=== PATIENT | male | born 1965 | race Two or more races ===

== ENCOUNTER 2022-09-22 08:24 | Inpatient (IN) | payer MEDICAID ==
[~2022-09-22] VITALS: Ht 167.6 cm; Wt 69.9 kg
[2022-09-22] MEDS ORDERED: ONDANSETRON HCL 4MG/2ML INJ IV STA (09:06)
[2022-09-22] MEDS ORDERED: SODIUM CHLORIDE 0.9% 1,000 ML IV ONE (09:15)
[2022-09-22] MEDS ORDERED: PANTOPRAZOLE SODIUM 40 MG/VIAL IV ONE (09:15)
[2022-09-22 09:33] LABS: HEMATOCRIT. 26.1 % (42.0-52.0); HEMOGLOBIN. 8.6 g/dL (14.0-18.0); MEAN CORPUSCULAR HEMOGLOBIN 29.8 pg (28.0-32.0); MEAN CORPUSCULAR VOLUME 90.8 fL (80.0-94.0); MEAN PLATELET VOLUME 8.2 fl (7.4-10.4); PLATELET 91 x1000/uL (130-400); RED BLOOD CELL COUNT 2.87 mill/uL (4.7-6.1); RED CELL DISTRIBUTION WIDTH 16.5 % (11.6-14.6)
[2022-09-22 09:41] LABS: INR 1.3; PROTHROMBIN TIME 13.5 sec (9.6-11.0)
[2022-09-22 09:42] LABS: CHLORIDE 100 mEq/L (98-107)
[2022-09-22 09:49] LABS: ETHANOL BLOOD 13 mg/dL
[2022-09-22 10:13] LABS: PLATELET ESTIMATE DECREASED
[2022-09-22] MEDS ORDERED: ONDANSETRON HCL 4MG/2ML INJ IV NR (11:00)
[2022-09-22] MEDS ORDERED: LORAZEPAM 2MG/ML CPJ IV PRN (14:15)
[2022-09-22] MEDS: SODIUM CHLORIDE 0.9% 1,000 ML IV SCH ×2 (14:15→22:53)
[2022-09-22] MEDS ORDERED: ONDANSETRON HCL 4MG/2ML INJ IV PRN (14:15)
[2022-09-22] MEDS ORDERED: MVI, ADULT NO.1 10 ML, FOLIC ACID 1 MG, THIAMINE HCL 100 MG in SODIUM CHLORIDE 0.9% 1,0... IV ONE ×4 (14:15)
[2022-09-22] MEDS ORDERED: PANTOPRAZOLE 80 MG in SODIUM CHLORIDE 0.9% 100 ML IV SCH (14:15)
[2022-09-22] MEDS: PANTOPRAZOLE 80 MG in SODIUM CHLORIDE 0.9% 100 ML IV SCH (16:10)
[2022-09-22 17:02] LABS: HEPATITIS B SURFACE ANTIGEN NEGATIVE
[2022-09-23] VITALS (11 sets, daily range): BP systolic 104–114; BP diastolic 47–84
[2022-09-23 00:35] LABS: HEMATOCRIT 20.4 % (42.0-52.0); HEMOGLOBIN 6.6 g/dL (14.0-18.0)
[2022-09-23] MEDS ORDERED: DEXTROSE 50% WATER 50ML SYRINGE IV PRN (02:30)
[2022-09-23] MEDS: PANTOPRAZOLE 80 MG in SODIUM CHLORIDE 0.9% 100 ML IV SCH ×3 (02:56→20:38)
[2022-09-23] MEDS: BLOOD SUGAR DIAGNOSTIC STRIP TEST SCH ×4 (05:44→20:38)
[2022-09-23] MEDS: SODIUM CHLORIDE 0.9% 1,000 ML IV SCH ×3 (05:44→20:38)
[2022-09-23] MEDS: INSULIN LISPRO 100 UNITS/ML SUBCUT SCH ×4 (05:44→20:38)
[2022-09-23 06:06] LABS: CLARITY URINE CLEAR (CLEAR); COLOR URINE YELLOW (YELLOW); KETONES URINE NEGATIVE (NEGATIVE); LEUKOCYTE ESTERASE URINE NEGATIVE (NEGATIVE); NITRITE URINE NEGATIVE (NEGATIVE); OCCULT BLOOD URINE NEGATIVE (NEGATIVE); PH URINE 7.5 (4.5-8.0); PROTEIN URINE NEGATIVE (NEGATIVE); SPECIFIC GRAVITY URINE 1.014 (1.005-1.030); UROBILINOGEN URINE >8.0 E.U./dL (0.2-1.0)
[2022-09-23 06:36] LABS: *AMPHETAMINES SCREEN URINE NEGATIVE (NEGATIVE); *BARBITURATES SCREEN URINE NEGATIVE (NEGATIVE); *BENZODIAZEPINES SCREEN URINE NEGATIVE (NEGATIVE); *COCAINE SCREEN URINE NEGATIVE (NEGATIVE); CANNABINOID URINE SCREEN NEGATIVE (NEGATIVE); METHADONE URINE SCREEN NEGATIVE (NEGATIVE); OPIATES URINE SCREEN NEGATIVE (NEGATIVE); PHENCYCLIDINE URINE SCREEN NEGATIVE (NEGATIVE)
[2022-09-23 06:54] LABS: BASOPHILS % 1.2 % (0.0-2.0); EOSINOPHILS % 1.3 % (0.0-5.0); LYMPHOCYTES % 23.3 % (20.0-50.0); MEAN CORPUSCULAR VOLUME 91.8 fL (80.0-94.0); MEAN PLATELET VOLUME 9.2 fl (7.4-10.4); MONOCYTES % 14.2 % (2.0-8.0); PLATELET 79 x1000/uL (130-400); RED BLOOD CELL COUNT 2.28 mill/uL (4.7-6.1); RED CELL DISTRIBUTION WIDTH 16.5 % (11.6-14.6)
[2022-09-23 06:58] LABS: HEMATOCRIT. 20.9 % (42.0-52.0); HEMOGLOBIN. 6.8 g/dL (14.0-18.0)
[2022-09-23 07:06] LABS: CHLORIDE 108 mEq/L (98-107)
[2022-09-23] MEDS ORDERED: POTASSIUM CHLORIDE 20MEQ TABLET SR PO NR (14:00)
[2022-09-23] MEDS ORDERED: CEFAZOLIN 1000MG PREMIX 50 ML IV NR (14:00)
[2022-09-23 16:40] LABS: HEMATOCRIT 29.9 % (42.0-52.0); HEMOGLOBIN 9.8 g/dL (14.0-18.0)
[2022-09-23] MEDS ORDERED: CALCIUM CHLORIDE 1,000 MG in DEXT 5% WATER 90 ML IV NR (23:00)
[2022-09-23 23:53] LABS: HEMATOCRIT 30.6 % (42.0-52.0); HEMOGLOBIN 10.2 g/dL (14.0-18.0)
[2022-09-24] VITALS: BP 106/59
[2022-09-24 04:00] VITALS: BP 112/71
[2022-09-24] MEDS: SODIUM CHLORIDE 0.9% 1,000 ML IV SCH ×3 (05:20→20:36)
[2022-09-24] MEDS: INSULIN LISPRO 100 UNITS/ML SUBCUT SCH ×4 (05:20→20:36)
[2022-09-24] MEDS: BLOOD SUGAR DIAGNOSTIC STRIP TEST SCH ×4 (05:20→20:36)
[2022-09-24 06:46] LABS: BASOPHILS % 1.1 % (0.0-2.0); EOSINOPHILS % 2.4 % (0.0-5.0); HEMATOCRIT. 30.2 % (42.0-52.0); HEMOGLOBIN. 10.1 g/dL (14.0-18.0); LYMPHOCYTES % 22.9 % (20.0-50.0); MEAN CORPUSCULAR HEMOGLOBIN 29.5 pg (28.0-32.0); MEAN CORPUSCULAR VOLUME 88.1 fL (80.0-94.0); MEAN PLATELET VOLUME 9.7 fl (7.4-10.4); MONOCYTES % 12.2 % (2.0-8.0); NEUTROPHILS % 61.4 % (40.0-76.0); PLATELET 91 x1000/uL (130-400); RED BLOOD CELL COUNT 3.42 mill/uL (4.7-6.1); RED CELL DISTRIBUTION WIDTH 16.8 % (11.6-14.6)
[2022-09-24 06:51] LABS: INR 1.2; PROTHROMBIN TIME 13.1 sec (9.6-11.0)
[2022-09-24 08:00] VITALS: BP 113/73
[2022-09-24] MEDS: PANTOPRAZOLE 80 MG in SODIUM CHLORIDE 0.9% 100 ML IV SCH ×2 (08:32→17:20)
[2022-09-24 10:31] LABS: CHLORIDE 107 mEq/L (98-107)
[2022-09-24] MEDS ORDERED: PROPOFOL 200MG/20ML VIAL IV ONE ×2 (10:44→11:00)
[2022-09-24 10:47] LABS: T4 FREE 1.16 ng/dL (0.76-1.46)
[2022-09-24] MEDS ORDERED: LIDOCAINE HCL 1% 10 MG/ML 10ML VIAL ONE (10:54)
[2022-09-24] MEDS ORDERED: ONDANSETRON HCL 4MG/2ML INJ ONE (10:54)
[2022-09-24] MEDS ORDERED: DEXAMETHASONE 4MG/ML 1ML VIAL ONE (10:54)
[2022-09-24 12:20] VITALS: BP 129/67
[2022-09-24 16:00] VITALS: BP 121/72
[2022-09-24 20:00] VITALS: BP 121/68
[2022-09-25] VITALS: BP 119/70
[2022-09-25 04:00] VITALS: BP 115/63
[2022-09-25] MEDS: BLOOD SUGAR DIAGNOSTIC STRIP TEST SCH ×3 (05:34→17:25)
[2022-09-25] MEDS: SODIUM CHLORIDE 0.9% 1,000 ML IV SCH ×2 (05:35→16:11)
[2022-09-25] MEDS: INSULIN LISPRO 100 UNITS/ML SUBCUT SCH ×3 (05:35→17:25)
[2022-09-25] MEDS: PANTOPRAZOLE 80 MG in SODIUM CHLORIDE 0.9% 100 ML IV SCH ×2 (05:35→16:10)
[2022-09-25 08:00] VITALS: BP 124/70
[2022-09-25] MEDS ORDERED: EZ-HD SUSPENSION(BARIUM SULFATE 340GM) PO ONE (11:29)
[2022-09-25] MEDS ORDERED: SIMETHICONE/SOD BICARB/CIT AC 1 EACH GRAN.EF.PK ONE (11:31)
[2022-09-25 12:00] VITALS: BP 141/82
[2022-09-25] MEDS ORDERED: PROT40 MT (14:51)
[2022-09-25 16:00] VITALS: BP 138/87
[2022-09-25] MEDS ORDERED: PROP10TA10 MT (16:13)
[2022-09-25 16:26] VITALS: BP 138/87
[2022-09-25 17:21] LABS: BASOPHILS % 0.8 % (0.0-2.0); EOSINOPHILS % 1.3 % (0.0-5.0); HEMOGLOBIN. 10.5 g/dL (14.0-18.0); LYMPHOCYTES % 17.7 % (20.0-50.0); MEAN CORPUSCULAR HEMOGLOBIN 29.3 pg (28.0-32.0); MEAN CORPUSCULAR VOLUME 89.2 fL (80.0-94.0); MEAN PLATELET VOLUME 8.6 fl (7.4-10.4); MONOCYTES % 13.1 % (2.0-8.0); NEUTROPHILS % 67.1 % (40.0-76.0); PLATELET 134 x1000/uL (130-400); RED BLOOD CELL COUNT 3.59 mill/uL (4.7-6.1)
[2022-09-25 17:29] LABS: CHLORIDE 102 mEq/L (98-107)
[2022-09-25] MEDS ORDERED: POTASSIUM CHLORIDE 20MEQ/PACKET PO NR (18:00)
== END 2022-09-25 17:15 | disposition home or self-care (01) | DRG 241 ==
LOC: ER 08:39 → 7WST 12:30 → EDBEDREQ 12:36 → ENRESERV 23:04 → ER 09-23 00:40
PROVIDERS: ADMIT Internal Medicine; ATTEND Internal Medicine
PROC: 30233N1 Transfusion of Nonautologous Red Blood Cells into Peripheral Vein, Percutaneous Approach (ICD-10-PCS; 2022-09-23)
PROC: 0DB78ZX Excision of Stomach, Pylorus, Via Natural or Artificial Opening Endoscopic, Diagnostic (ICD-10-PCS; principal; 2022-09-24)
DX: K29.71 Gastritis, unspecified, with bleeding (principal); D69.6 Thrombocytopenia, unspecified; E46 Unspecified protein-calorie malnutrition; R16.0 Hepatomegaly, not elsewhere classified; D62 Acute posthemorrhagic anemia; Z20.822 Contact with and (suspected) exposure to COVID-19; K31.89 Other diseases of stomach and duodenum; E83.52 Hypercalcemia; K92.0 Hematemesis; F10.20 Alcohol dependence, uncomplicated; K44.9 Diaphragmatic hernia without obstruction or gangrene; I85.00 Esophageal varices without bleeding
CPT/HCPCS: 36415; 71045; 74220; 76700; 80048; 80053; 80076; 80305; 80320; 81003; 82140; 82248; 82962; 83970; 84439; 84443; 85014; 85018; 85025; 86705; 86709; 86803; 86850; 86900; 86920; 87340; 87426; 88305; 93005; 99285; C9113; J0690; J1100; J1815; J2405; J2704; J3411; J3490; J7030; J7050; J7060; J7517; P9016; G0480

== ENCOUNTER 2024-02-05 00:42 | Emergency (ER) | payer MEDICAID ==
[~2024-02-05] VITALS: Ht 170.2 cm; Wt 145.0 kg
[~2024-02-05 00:42] MED LIST: PROP10TA10 MT; PROT40 MT; THIA100T88 MT
[2024-02-05 01:02] VITALS: BP 136/70; PULSE 110; RESP 18; TEMP 97.9; O2SAT 97
== END 2024-02-05 09:13 | disposition left against medical advice (07) ==
LOC: ER 00:42
DX: M79.652 Pain in left thigh (principal); Z53.21 Procedure and treatment not carried out due to patient leaving prior to being seen by health care provider
CPT/HCPCS: 99281

== ENCOUNTER 2024-10-05 10:23 | Inpatient (IN) | payer MEDICAID ==
[~2024-10-05] VITALS: Ht 165.1 cm; Wt 71.7 kg
[2024-10-05 13:15] LABS: BASOPHILS % 0.5 % (0.0-2.0); EOSINOPHILS % 1.5 % (0.0-5.0); HEMATOCRIT. 37.5 % (42.0-52.0); HEMOGLOBIN. 12.4 g/dL (14.0-18.0); LYMPHOCYTES % 24.7 % (20.0-50.0); MEAN CORPUSCULAR HEMOGLOBIN 30.3 pg (28.0-32.0); MEAN CORPUSCULAR HGB CONC 33.1 g/dL (31.0-37.0); MEAN CORPUSCULAR VOLUME 91.4 fL (80.0-94.0); MEAN PLATELET VOLUME 7.9 fl (7.4-10.4); NEUTROPHILS % 64.3 % (40.0-76.0); PLATELET 157 x1000/uL (130-400); RED CELL DISTRIBUTION WIDTH 15.5 % (11.6-14.6); WHITE BLOOD COUNT 6.3 x1000/uL (4.5-11.0)
[2024-10-05 13:22] LABS: CHLORIDE 106 mEq/L (98-107); POTASSIUM 4.1 mEq/L (3.5-5.1); SODIUM 138 mEq/L (136-145)
[2024-10-05 13:23] LABS: CALCIUM 9.5 mg/dL (8.7-10.4); CARBON DIOXIDE 21 mEq/L (21-32)
[2024-10-05 13:26] LABS: INR 1.1; PARTIAL THROMBOPLASTIN TIME 26.2 sec (23.4-31.0); PROTHROMBIN TIME 12.4 sec (9.6-11.0)
[2024-10-05 13:28] LABS: CREATININE 0.9 mg/dL (0.6-1.3); GLUCOSE 115 mg/dL (70-105); UREA NITROGEN BLOOD 12 mg/dL (9-23)
[2024-10-05 13:29] LABS: ALANINE AMINOTRANSFERASE 36 IU/L (10-49); ALBUMIN 4.1 g/dL (3.2-4.8); ASPARTATE AMINOTRANSFERASE 54 IU/L (<34)
[2024-10-05 13:30] LABS: BILIRUBIN TOTAL 1.2 mg/dL (0.1-1.0); PROTEIN TOTAL 8.1 g/dL (6.0-8.3)
[2024-10-05 13:33] LABS: ETHANOL BLOOD < 10 mg/dL (<10)
[2024-10-05 19:15] VITALS: BP 112/51; PULSE 70; RESP 17; TEMP 36.5292
[2024-10-05 20:00] VITALS: BP 112/51; PULSE 70; RESP 17; TEMP 36.50292; O2SAT 96
[2024-10-05] MEDS ORDERED: ONDANSETRON HCL 4MG/2ML INJ IV PRN (21:00)
[2024-10-05] MEDS ORDERED: DOCUSATE SODIUM 100MG CAPSULE PO PRN (21:00)
[2024-10-05] MEDS ORDERED: HYDROCODONE/ACETAMINOPHEN 5/325MG TABLET PO PRN (21:00)
[2024-10-05] MEDS ORDERED: IPRATROPIUM/ALBUTEROL 0.5-3(2.5)MG/3ML NEB HHN PRN (21:00)
[2024-10-05] MEDS ORDERED: MAGNESIUM/ALUMINUM HYDROXIDE/SIMETHICONE 30ML UDC PO PRN (21:00)
[2024-10-05] MEDS ORDERED: POTASSIUM CHLORIDE 20MEQ TABLET SR PO PRN (21:00)
[2024-10-05] MEDS ORDERED: CHLORDIAZEPOXIDE 25MG CAPSULE PO PRN (21:00)
[2024-10-05] MEDS: INSULIN LISPRO 100 UNITS/ML SUBCUT SCH (21:00)
[2024-10-05] MEDS ORDERED: ACETAMINOPHEN 325MG TABLET PO PRN (21:00)
[2024-10-05] MEDS ORDERED: CLONIDINE 0.1MG TABLET PO PRN (21:00)
[2024-10-05] MEDS ORDERED: LORAZEPAM 2MG/ML INJ IV PRN ×2 (21:00)
[2024-10-05] MEDS: PANTOPRAZOLE SODIUM 40 MG/VIAL IV SCH (22:09)
[2024-10-06] VITALS: BP 114/62; PULSE 57; RESP 18; TEMP 36.55848; O2SAT 97
[2024-10-06 00:23] LABS: HEMATOCRIT 33.7 % (42.0-52.0); HEMOGLOBIN 11.5 g/dL (14.0-18.0)
[2024-10-06 04:00] VITALS: BP 140/53; PULSE 61; RESP 20; TEMP 37.39188
[2024-10-06 07:52] LABS: AMMONIA 31 uMol/L (<32)
[2024-10-06 08:00] VITALS: BP 93/58; PULSE 61; RESP 20; TEMP 36.33624; O2SAT 97
[2024-10-06 08:02] LABS: TRIGLYCERIDE 87 mg/dL (0-150)
[2024-10-06 08:03] LABS: LDL CHOLESTEROL 89 mg/dL (5-100)
[2024-10-06 08:04] LABS: ALANINE AMINOTRANSFERASE 33 IU/L (10-49); ALBUMIN 3.6 g/dL (3.2-4.8); ASPARTATE AMINOTRANSFERASE 48 IU/L (<34); BILIRUBIN DIRECT 0.4 mg/dL (<=3.0); CHOLESTEROL 163 mg/dL (<200); HDL CHOLESTEROL 55 mg/dL (>55); PHOSPHORUS 3.8 mg/dL (2.5-4.9); PROTEIN TOTAL 6.9 g/dL (6.0-8.3)
[2024-10-06 08:08] LABS: T4 FREE 1.12 ng/dL (0.89-1.76); TROPONIN I HIGH SENSITIVITY < 4 ng/L (3.0-53)
[2024-10-06 10:12] LABS: BASOPHILS % 1.2 % (0.0-2.0); EOSINOPHILS % 2.8 % (0.0-5.0); HEMATOCRIT. 34.6 % (42.0-52.0); HEMOGLOBIN. 11.7 g/dL (14.0-18.0); LYMPHOCYTES % 31.6 % (20.0-50.0); MEAN CORPUSCULAR HEMOGLOBIN 30.7 pg (28.0-32.0); MEAN CORPUSCULAR HGB CONC 33.7 g/dL (31.0-37.0); MEAN CORPUSCULAR VOLUME 90.9 fL (80.0-94.0); MEAN PLATELET VOLUME 8.8 fl (7.4-10.4); MONOCYTES % 11.1 % (2.0-8.0); NEUTROPHILS % 53.3 % (40.0-76.0); PLATELET 142 x1000/uL (130-400); RED CELL DISTRIBUTION WIDTH 15.8 % (11.6-14.6); WHITE BLOOD COUNT 5.1 x1000/uL (4.5-11.0)
[2024-10-06 10:16] LABS: CHLORIDE 108 mEq/L (98-107); SODIUM 140 mEq/L (136-145)
[2024-10-06 10:19] LABS: CALCIUM 8.9 mg/dL (8.7-10.4); CARBON DIOXIDE 20 mEq/L (21-32)
[2024-10-06 10:24] LABS: CREATININE 0.9 mg/dL (0.6-1.3); GLUCOSE 97 mg/dL (70-105); UREA NITROGEN BLOOD 15 mg/dL (9-23)
[2024-10-06] MEDS: MVI, ADULT NO.1 10 ML, THIAMINE HCL 100 MG, FOLIC ACID 1 MG in SODIUM CHLORIDE 0.9% 1,0... IV SCH (11:30)
[2024-10-06 12:00] VITALS: BP 110/68; PULSE 69; RESP 18; TEMP 36.44736; O2SAT 100
[2024-10-06] MEDS: DILTIAZEM HCL 30MG TABLET PO SCH (14:00)
[2024-10-06 15:30] LABS: CLARITY URINE CLEAR (CLEAR); COLOR URINE DARK YELLOW (YELLOW); GLUCOSE URINE NEGATIVE (NEGATIVE); KETONES URINE 1+ (NEGATIVE); LEUKOCYTE ESTERASE URINE NEGATIVE (NEGATIVE); NITRITE URINE NEGATIVE (NEGATIVE); OCCULT BLOOD URINE NEGATIVE (NEGATIVE); PH URINE 6.5 (4.5-8.0); PROTEIN URINE NEGATIVE (NEGATIVE); SPECIFIC GRAVITY URINE 1.023 (1.005-1.030)
[2024-10-06 16:00] VITALS: BP 108/68; PULSE 68; RESP 18; TEMP 36.6696; O2SAT 98
[2024-10-06 16:58] LABS: BACTERIA URINE NONE SEEN; RBC URINE NONE SEEN /hpf (0-2); SQUAMOUS EPITHELIAL CELL URINE NONE SEEN /lpf (RARE/1+); WBC URINE NONE SEEN /hpf (0-2)
[2024-10-06 17:04] LABS: HEMATOCRIT 34.7 % (42.0-52.0); HEMOGLOBIN 11.5 g/dL (14.0-18.0)
[2024-10-06 18:32] LABS: VITAMIN B12 SERUM 708 pg/mL (211-911)
[2024-10-06 18:34] LABS: FOLIC ACID (FOLATE) SERUM > 20.00 ng/mL (>5.38)
[2024-10-06 18:44] LABS: HEPATITIS B SURFACE ANTIGEN NEGATIVE (Negative)
[2024-10-06 19:05] LABS: HEPATITIS A AB IGM NEGATIVE (Negative); HEPATITIS B CORE AB IGM NEGATIVE (Negative)
[2024-10-06 19:06] LABS: HEPATITIS C AB NON REACTIVE (Neg) (Negative)
[2024-10-06 20:00] VITALS: BP 109/61; PULSE 81; RESP 20; TEMP 36.28068; O2SAT 96
[2024-10-07 00:08] LABS: HEMATOCRIT 34.7 % (42.0-52.0); HEMOGLOBIN 11.6 g/dL (14.0-18.0)
[2024-10-07 00:30] VITALS: BP 92/51; PULSE 56; RESP 18; TEMP 36.114; O2SAT 96
[2024-10-07 04:00] VITALS: BP 99/49; PULSE 58; RESP 16; TEMP 36.114; O2SAT 100
[2024-10-07 08:00] VITALS: BP 102/60; PULSE 62; RESP 20; TEMP 36.114; O2SAT 95
[2024-10-07 08:19] LABS: CARBON DIOXIDE 23 mEq/L (21-32); CHLORIDE 107 mEq/L (98-107); POTASSIUM 4.1 mEq/L (3.5-5.1); SODIUM 139 mEq/L (136-145)
[2024-10-07 08:20] LABS: CALCIUM 8.7 mg/dL (8.7-10.4)
[2024-10-07 08:25] LABS: GLUCOSE 85 mg/dL (70-105); UREA NITROGEN BLOOD 14 mg/dL (9-23)
[2024-10-07 08:26] LABS: ALANINE AMINOTRANSFERASE 30 IU/L (10-49); ALBUMIN 3.6 g/dL (3.2-4.8); ASPARTATE AMINOTRANSFERASE 40 IU/L (<34)
[2024-10-07 08:27] LABS: BILIRUBIN DIRECT 0.3 mg/dL (<=3.0); PHOSPHORUS 3.5 mg/dL (2.5-4.9); PROTEIN TOTAL 6.9 g/dL (6.0-8.3)
[2024-10-07 08:42] LABS: EOSINOPHILS % 3.5 % (0.0-5.0); HEMATOCRIT. 34.9 % (42.0-52.0); HEMOGLOBIN. 11.6 g/dL (14.0-18.0); LYMPHOCYTES % 33.8 % (20.0-50.0); MEAN CORPUSCULAR HEMOGLOBIN 30.6 pg (28.0-32.0); MEAN CORPUSCULAR HGB CONC 33.3 g/dL (31.0-37.0); MEAN CORPUSCULAR VOLUME 91.9 fL (80.0-94.0); MEAN PLATELET VOLUME 8.3 fl (7.4-10.4); MONOCYTES % 10.6 % (2.0-8.0); NEUTROPHILS % 51.1 % (40.0-76.0); PLATELET 136 x1000/uL (130-400); RED BLOOD CELL COUNT 3.79 mill/uL (4.7-6.1); RED CELL DISTRIBUTION WIDTH 15.1 % (11.6-14.6); WHITE BLOOD COUNT 4.5 x1000/uL (4.5-11.0)
[2024-10-07 11:13] LABS: *AMPHETAMINES SCREEN URINE PRESUMPTIVE POSITIVE (NEGATIVE)
[2024-10-07 11:14] LABS: *BENZODIAZEPINES SCREEN URINE NEGATIVE (NEGATIVE)
[2024-10-07 11:15] LABS: *BARBITURATES SCREEN URINE NEGATIVE (NEGATIVE); *COCAINE SCREEN URINE NEGATIVE (NEGATIVE); CANNABINOID URINE SCREEN NEGATIVE (NEGATIVE); ECSTASY MDMA SCREEN URINE NEGATIVE (NEGATIVE); METHADONE URINE SCREEN NEGATIVE (NEGATIVE); OPIATES URINE SCREEN NEGATIVE (NEGATIVE); PHENCYCLIDINE URINE SCREEN NEGATIVE (NEGATIVE)
[2024-10-07 12:00] VITALS: BP 99/40; PULSE 57; RESP 18; TEMP 36.44736; O2SAT 95
[2024-10-07 16:00] VITALS: BP 122/62; PULSE 53; RESP 20; TEMP 36.33624; O2SAT 97
[2024-10-07] MEDS ORDERED: NALOXONE HCL 0.4MG/ML VIAL IV PRN (18:45)
[2024-10-07] MEDS: OCTREOTIDE 1,000 MCG in SODIUM CHLORIDE 0.9% 98 ML IV SCH (18:54)
[2024-10-07 20:45] VITALS: BP 154/76; PULSE 81; RESP 19; TEMP 36.00288; O2SAT 96
[2024-10-07] MEDS: DILTIAZEM HCL 30MG TABLET PO SCH (21:56)
[2024-10-08] VITALS: BP 101/52; PULSE 61; RESP 20; TEMP 36.28068; O2SAT 97
[2024-10-08 04:00] VITALS: BP 92/52; PULSE 61; RESP 18; TEMP 36.3918; O2SAT 96
[2024-10-08 08:00] VITALS: BP 120/78; PULSE 68; RESP 18; TEMP 35.89176; TEMP 37.00296; O2SAT 100
[2024-10-08 12:00] VITALS: BP 118/74; PULSE 79; RESP 20; TEMP 37.11408; O2SAT 98
[2024-10-08 16:00] VITALS: BP 130/54; PULSE 54; RESP 22; TEMP 36.44736; O2SAT 95
[2024-10-08] MEDS: SUCRALFATE 1G TABLET PO SCH (18:00)
[2024-10-08 20:00] VITALS: BP 106/77; PULSE 62; RESP 20; TEMP 36.3918; O2SAT 98
[2024-10-08 22:18] LABS: BASOPHILS % 0.9 % (0.0-2.0); EOSINOPHILS % 3.6 % (0.0-5.0); HEMATOCRIT. 34.6 % (42.0-52.0); HEMOGLOBIN. 11.7 g/dL (14.0-18.0); LYMPHOCYTES % 36.3 % (20.0-50.0); MEAN CORPUSCULAR HEMOGLOBIN 30.6 pg (28.0-32.0); MEAN CORPUSCULAR HGB CONC 33.9 g/dL (31.0-37.0); MEAN CORPUSCULAR VOLUME 90.2 fL (80.0-94.0); MEAN PLATELET VOLUME 8.4 fl (7.4-10.4); MONOCYTES % 10.7 % (2.0-8.0); NEUTROPHILS % 48.5 % (40.0-76.0); PLATELET 130 x1000/uL (130-400); RED BLOOD CELL COUNT 3.84 mill/uL (4.7-6.1); RED CELL DISTRIBUTION WIDTH 15.6 % (11.6-14.6); WHITE BLOOD COUNT 5.2 x1000/uL (4.5-11.0)
[2024-10-08 22:26] LABS: CARBON DIOXIDE 26 mEq/L (21-32); CHLORIDE 107 mEq/L (98-107); POTASSIUM 3.8 mEq/L (3.5-5.1); SODIUM 139 mEq/L (136-145)
[2024-10-08 22:27] LABS: CALCIUM 8.7 mg/dL (8.7-10.4)
[2024-10-08 22:31] LABS: IRON 68 ug/dL (65-175)
[2024-10-08 22:32] LABS: CREATININE 0.9 mg/dL (0.6-1.3); GLUCOSE 150 mg/dL (70-105); UREA NITROGEN BLOOD 6 mg/dL (9-23)
[2024-10-08 22:33] LABS: ALANINE AMINOTRANSFERASE 30 IU/L (10-49); ASPARTATE AMINOTRANSFERASE 37 IU/L (<34); PROTEIN TOTAL 6.8 g/dL (6.0-8.3)
[2024-10-08 22:34] LABS: ALBUMIN 3.6 g/dL (3.2-4.8); TOTAL IRON BINDING CAPACITY 330 ug/dl (250-425)
[2024-10-09] VITALS: BP 110/75; PULSE 60; RESP 20; TEMP 36.114; O2SAT 97
[2024-10-09 04:00] VITALS: BP 106/66; PULSE 62; RESP 20; TEMP 36.3918; O2SAT 98
[2024-10-09 08:00] VITALS: BP 120/86; PULSE 89; RESP 18; TEMP 36.33624; O2SAT 100
[2024-10-09] MEDS: METOCLOPRAMIDE HCL 10MG/2ML VIAL IV SCH (09:46)
[2024-10-09 09:58] LABS: CARBON DIOXIDE 27 mEq/L (21-32); CHLORIDE 102 mEq/L (98-107); SODIUM 137 mEq/L (136-145)
[2024-10-09 09:59] LABS: CALCIUM 8.9 mg/dL (8.7-10.4); INR 1.3; PROTHROMBIN TIME 13.8 sec (9.6-11.0)
[2024-10-09 10:00] LABS: EOSINOPHILS % 2.9 % (0.0-5.0); HEMATOCRIT. 38.3 % (42.0-52.0); HEMOGLOBIN. 12.8 g/dL (14.0-18.0); LYMPHOCYTES % 25.1 % (20.0-50.0); MEAN CORPUSCULAR HEMOGLOBIN 30.5 pg (28.0-32.0); MEAN CORPUSCULAR HGB CONC 33.4 g/dL (31.0-37.0); MEAN CORPUSCULAR VOLUME 91.3 fL (80.0-94.0); MEAN PLATELET VOLUME 8.2 fl (7.4-10.4); MONOCYTES % 9.2 % (2.0-8.0); NEUTROPHILS % 61.8 % (40.0-76.0); PLATELET 153 x1000/uL (130-400); RED CELL DISTRIBUTION WIDTH 15.5 % (11.6-14.6)
[2024-10-09 10:04] LABS: CREATININE 1.1 mg/dL (0.6-1.3); GLUCOSE 180 mg/dL (70-105); UREA NITROGEN BLOOD 6 mg/dL (9-23)
[2024-10-09 10:05] LABS: ALANINE AMINOTRANSFERASE 43 IU/L (10-49); ASPARTATE AMINOTRANSFERASE 55 IU/L (<34)
[2024-10-09 10:06] LABS: ALBUMIN 4.1 g/dL (3.2-4.8); BILIRUBIN TOTAL 1.2 mg/dL (0.1-1.0); PROTEIN TOTAL 7.8 g/dL (6.0-8.3)
[2024-10-09 12:00] VITALS: BP 118/79; PULSE 88; RESP 20; TEMP 36.44736; O2SAT 100
[2024-10-09] MEDS ORDERED: ONDANSETRON HCL 4MG/2ML INJ IV NR (13:15)
[2024-10-09] MEDS ORDERED: ETOMIDATE 2MG/ML 10ML VIAL IV ONE (15:18)
[2024-10-09] MEDS ORDERED: PROPOFOL 200MG/20ML VIAL IV ONE (15:19)
[2024-10-09] MEDS ORDERED: MORPHINE SULFATE 2 MG/ML INJ (NOT FOR IM USE) IV PRN ×2 (16:30→16:45)
[2024-10-09] MEDS ORDERED: RACEPINEPHRINE 2.25% 0.5ML NEB VIAL HHN PRN (16:30)
[2024-10-09] MEDS ORDERED: HYDRALAZINE 20MG/ML VIAL IV PRN (16:45)
[2024-10-09] MEDS ORDERED: GLYCOPYRROLATE 0.2 MG/ML 2ML VIAL IV PRN (16:45)
[2024-10-09] MEDS ORDERED: LABETALOL 5MG/ML 4ML INJ IV PRN (16:45)
[2024-10-09] MEDS ORDERED: ONDANSETRON HCL 4MG/2ML INJ IV PRN (16:45)
[2024-10-09] MEDS ORDERED: HYDROMORPHONE HCL/PF 1MG/ML INJ IV PRN ×2 (16:45)
[2024-10-09 17:00] VITALS: PULSE 57; RESP 18; O2SAT 98
[2024-10-09] MEDS: SUCRALFATE 1G TABLET PO SCH (17:40)
[2024-10-09 21:48] LABS: HEMATOCRIT 39.7 % (42.0-52.0); HEMOGLOBIN 13.4 g/dL (14.0-18.0); MEAN CORPUSCULAR HGB CONC 33.8 g/dL (31.0-37.0); MEAN CORPUSCULAR VOLUME 91.5 fL (80.0-94.0); PLATELET 122 x1000/uL (130-400); RED BLOOD CELL COUNT 4.34 mill/uL (4.7-6.1); RED CELL DISTRIBUTION WIDTH 15.6 % (11.6-14.6); WHITE BLOOD COUNT 5.4 x1000/uL (4.5-11.0)
[2024-10-10] VITALS (12 sets, daily range): BP systolic 75–102; BP diastolic 47–68; PULSE 54–70; RESP 9–20; TEMP 36.72516–37.16964; O2SAT 94–100
[2024-10-10] MEDS: METOCLOPRAMIDE HCL 10MG/2ML VIAL IV NR (01:16)
[2024-10-10] MEDS ORDERED: SODIUM CHLORIDE 0.9% 500 ML IV PRN (03:45)
[2024-10-10] MEDS: DEXAMETHASONE 10 MG/ML VIAL IV SCH (08:47)
[2024-10-10] MEDS: SODIUM CHLORIDE 0.9% 500 ML IV PRN (14:33)
[2024-10-10] MEDS: SODIUM CHLORIDE 0.9% 1,000 ML IV PRN (23:05)
[2024-10-11] VITALS (12 sets, daily range): BP systolic 88–124; BP diastolic 49–92; PULSE 50–72; RESP 11–21; TEMP 36.00288–36.6696; O2SAT 95–100
[2024-10-11] MEDS: FERROUS SULFATE 325MG TABLET PO SCH (18:40)
[2024-10-11] MEDS: ASCORBIC ACID 500 MG TABLET PO SCH (21:01)
[2024-10-12] VITALS (11 sets, daily range): BP systolic 81–134; BP diastolic 51–79; PULSE 46–57; RESP 8–13; TEMP 36.05844–36.72516; O2SAT 95–100
[2024-10-12 05:56] LABS: INR 1.2; PROTHROMBIN TIME 13.2 sec (9.6-11.0)
[2024-10-12 06:04] LABS: BASOPHILS % 0.1 % (0.0-2.0); EOSINOPHILS % 0.1 % (0.0-5.0); HEMATOCRIT. 33.6 % (42.0-52.0); HEMOGLOBIN. 11.4 g/dL (14.0-18.0); LYMPHOCYTES % 18.2 % (20.0-50.0); MEAN CORPUSCULAR HEMOGLOBIN 30.7 pg (28.0-32.0); MEAN CORPUSCULAR VOLUME 90.5 fL (80.0-94.0); MEAN PLATELET VOLUME 9.2 fl (7.4-10.4); MONOCYTES % 8.1 % (2.0-8.0); NEUTROPHILS % 73.5 % (40.0-76.0); PLATELET 101 x1000/uL (130-400); RED BLOOD CELL COUNT 3.72 mill/uL (4.7-6.1); RED CELL DISTRIBUTION WIDTH 15.1 % (11.6-14.6); WHITE BLOOD COUNT 7.7 x1000/uL (4.5-11.0)
[2024-10-12 06:10] LABS: CARBON DIOXIDE 26 mEq/L (21-32); CHLORIDE 106 mEq/L (98-107); POTASSIUM 4.1 mEq/L (3.5-5.1); SODIUM 138 mEq/L (136-145)
[2024-10-12 06:11] LABS: CALCIUM 8.2 mg/dL (8.7-10.4)
[2024-10-12 06:16] LABS: CREATININE 0.8 mg/dL (0.6-1.3); GLUCOSE 135 mg/dL (70-105); UREA NITROGEN BLOOD 13 mg/dL (9-23)
[2024-10-12 06:17] LABS: ALANINE AMINOTRANSFERASE 21 IU/L (10-49); ALBUMIN 3.3 g/dL (3.2-4.8); ASPARTATE AMINOTRANSFERASE 19 IU/L (<34)
[2024-10-12 06:18] LABS: BILIRUBIN TOTAL 0.5 mg/dL (0.1-1.0)
[2024-10-12] MEDS ORDERED: ETOMIDATE 2MG/ML 10ML VIAL IV ONE (13:47)
[2024-10-12] MEDS ORDERED: PROPOFOL 200MG/20ML VIAL IV ONE (13:48)
[2024-10-12] MEDS ORDERED: FENTANYL CITRATE/PF 50MCG/ML 5ML VIAL ONE (13:48)
[2024-10-12] MEDS ORDERED: MIDAZOLAM HCL 2 MG/2 ML VIAL ONE (13:48)
[2024-10-12] MEDS ORDERED: SIMETHICONE 40 MG/0.6 ML 15ML ONE (14:15)
[2024-10-12] MEDS ORDERED: ROCURONIUM BROMIDE 10MG/ML VIAL 5ML IV ONE (14:18)
[2024-10-12] MEDS ORDERED: SUGAMMADEX SODIUM 200MG/2ML VIAL IV ONE (14:39)
[2024-10-12] MEDS ORDERED: HYDROMORPHONE HCL/PF 1MG/ML INJ IV PRN (14:45)
[2024-10-12] MEDS ORDERED: MEPERIDINE HCL/PF 25MG/ML CPJ IV PRN (14:45)
[2024-10-12] MEDS ORDERED: ONDANSETRON HCL 4MG/2ML INJ IV PRN (14:45)
[2024-10-12] MEDS ORDERED: LABETALOL 5MG/ML 4ML INJ IV PRN (14:45)
[2024-10-12] MEDS ORDERED: GLYCOPYRROLATE 0.2 MG/ML 2ML VIAL ONE (14:48)
[2024-10-12] MEDS ORDERED: NEOSTIGMINE METHYLSULFATE 1MG/ML 10 ML VIAL ONE (14:48)
[2024-10-12] MEDS: DEXAMETHASONE 10 MG/ML VIAL IV SCH (17:29)
[2024-10-13] VITALS (8 sets, daily range): BP systolic 99–120; BP diastolic 50–65; PULSE 43–55; RESP 7–19; TEMP 36.3918–37.00296; O2SAT 93–99
[2024-10-13 08:06] LABS: CHLORIDE 105 mEq/L (98-107); POTASSIUM 4.1 mEq/L (3.5-5.1); SODIUM 139 mEq/L (136-145)
[2024-10-13 08:07] LABS: CALCIUM 8.1 mg/dL (8.7-10.4); CARBON DIOXIDE 23 mEq/L (21-32)
[2024-10-13 08:12] LABS: CREATININE 0.8 mg/dL (0.6-1.3); GLUCOSE 150 mg/dL (70-105); UREA NITROGEN BLOOD 15 mg/dL (9-23)
[2024-10-13 08:43] LABS: HEMOGLOBIN. 12.5 g/dL (14.0-18.0); LYMPHOCYTES % 12.4 % (20.0-50.0); MEAN CORPUSCULAR HEMOGLOBIN 30.9 pg (28.0-32.0); MEAN CORPUSCULAR HGB CONC 33.7 g/dL (31.0-37.0); MEAN CORPUSCULAR VOLUME 91.5 fL (80.0-94.0); MEAN PLATELET VOLUME 9.2 fl (7.4-10.4); MONOCYTES % 3.6 % (2.0-8.0); PLATELET 105 x1000/uL (130-400); RED BLOOD CELL COUNT 4.04 mill/uL (4.7-6.1); RED CELL DISTRIBUTION WIDTH 15.2 % (11.6-14.6); WHITE BLOOD COUNT 7.2 x1000/uL (4.5-11.0)
[2024-10-13] MEDS: CARVEDILOL 3.125 MG TABLET PO SCH (09:30)
[2024-10-14] VITALS: BP 100/40; PULSE 68; RESP 19; TEMP 36.3918; TEMP 36.39180; O2SAT 96
[2024-10-14] MEDS ORDERED: LORAZEPAM 0.5MG TABLET PO PRN
[2024-10-14] MEDS: MELATONIN 3MG TABLET PO SCH (00:07)
== END 2024-10-14 03:00 | disposition left against medical advice (07) | DRG 280 ==
LOC: ER 10:23 → EDBEDREQ 14:42 → 4WST 19:50 → 7WST 10-06 01:09 → 5EST 10-09 20:36 → 8WST 10-13 09:12
PROVIDERS: ADMIT Family Medicine Adult Medicine; ATTEND Family Medicine Adult Medicine
PROC: 0DB78ZX Excision of Stomach, Pylorus, Via Natural or Artificial Opening Endoscopic, Diagnostic (ICD-10-PCS; 2024-10-09)
PROC: 0DJ08ZZ Inspection of Upper Intestinal Tract, Via Natural or Artificial Opening Endoscopic (ICD-10-PCS; principal; 2024-10-12)
DX: K70.30 Alcoholic cirrhosis of liver without ascites (principal); I85.11 Secondary esophageal varices with bleeding; D69.6 Thrombocytopenia, unspecified; K76.6 Portal hypertension; D64.9 Anemia, unspecified; K29.70 Gastritis, unspecified, without bleeding; K31.89 Other diseases of stomach and duodenum; F10.20 Alcohol dependence, uncomplicated; Z53.29 Procedure and treatment not carried out because of patient's decision for other reasons; Z79.899 Other long term (current) drug therapy; Z87.19 Personal history of other diseases of the digestive system
CPT/HCPCS: 36415; 80048; 80053; 80061; 80076; 80305; 80320; 81003; 82105; 82140; 82270; 82607; 82728; 82746; 82962; 83036; 83540; 83550; 83735; 84100; 84439; 84484; 85014; 85018; 85025; 85027; 85044; 86705; 86709; 86850; 86900; 87340; 88305; 88312; 88313; 93970; 94070; 94640; 94664; 98960; 99285; A4606; A4663; C1893; J1100; J1815; J2250; J2354; J2470; J2704; J2710; J2765; J3010; J3411; J3490; J7030; J7050; G0480

== ENCOUNTER 2024-10-27 13:32 | Emergency (ER) | payer MEDICAID ==
[~2024-10-27] VITALS: Ht 170.2 cm; Wt 70.0 kg
[2024-10-27 13:36] VITALS: O2SAT 100
[2024-10-27 13:55] VITALS: BP 116/78; PULSE 100; RESP 16; TEMP 37; O2SAT 100
== END 2024-10-27 20:00 | disposition left against medical advice (07) ==
LOC: ER 13:32
DX: F19.90 Other psychoactive substance use, unspecified, uncomplicated (principal); Z53.21 Procedure and treatment not carried out due to patient leaving prior to being seen by health care provider

== ENCOUNTER 2024-11-09 03:48 | Emergency (ER) | payer MEDICAID ==
[~2024-11-09] VITALS: Ht 175.3 cm; Wt 70.0 kg
[2024-11-09 04:07] VITALS: BP 127/70; PULSE 82; RESP 20; TEMP 37.2; O2SAT 98
[2024-11-09 05:08] LABS: BASOPHILS % 0.9 % (0.0-2.0); EOSINOPHILS % 2.5 % (0.0-5.0); HEMOGLOBIN. 12.1 g/dL (14.0-18.0); LYMPHOCYTES % 33.5 % (20.0-50.0); MEAN CORPUSCULAR HEMOGLOBIN 30.5 pg (28.0-32.0); MEAN CORPUSCULAR HGB CONC 33.7 g/dL (31.0-37.0); MEAN CORPUSCULAR VOLUME 90.5 fL (80.0-94.0); MEAN PLATELET VOLUME 7.9 fl (7.4-10.4); MONOCYTES % 14.4 % (2.0-8.0); NEUTROPHILS % 48.7 % (40.0-76.0); PLATELET 191 x1000/uL (130-400); RED BLOOD CELL COUNT 3.98 mill/uL (4.7-6.1); RED CELL DISTRIBUTION WIDTH 15.1 % (11.6-14.6); WHITE BLOOD COUNT 5.1 x1000/uL (4.5-11.0)
[2024-11-09 05:14] LABS: CHLORIDE 109 mEq/L (98-107); SODIUM 140 mEq/L (136-145)
[2024-11-09 05:15] LABS: CALCIUM 9.1 mg/dL (8.7-10.4); CARBON DIOXIDE 24 mEq/L (21-32)
[2024-11-09 05:20] LABS: CREATININE 0.8 mg/dL (0.6-1.3); GLUCOSE 100 mg/dL (70-105); UREA NITROGEN BLOOD 10 mg/dL (9-23)
== END 2024-11-09 08:56 | disposition left against medical advice (07) ==
LOC: ER 03:48
DX: R51.9 Headache, unspecified (principal)
CPT/HCPCS: 36415; 80048; 85025; 99284